=== PATIENT | female | born 1985 | race African-American/Black ===

== ENCOUNTER 2017-05-19 13:59 | Emergency (ER) | payer MEDICAID | END 2017-05-19 14:25 | disposition home or self-care (01) | LOC: D.ER 13:59 | DX: J06.9 Acute upper respiratory infection, unspecified (principal); J02.9 Acute pharyngitis, unspecified; I10 Essential (primary) hypertension; F17.200 Nicotine dependence, unspecified, uncomplicated ==

== ENCOUNTER 2017-08-22 19:25 | Emergency (ER) | payer MEDICAID | END 2017-08-22 20:25 | disposition home or self-care (01) | LOC: D.ER 19:25 | DX: K02.9 Dental caries, unspecified (principal); I10 Essential (primary) hypertension ==

== ENCOUNTER 2017-09-01 16:48 | Emergency (ER) | payer SELFPAY | END 2017-09-01 18:59 | disposition home or self-care (01) | LOC: D.ER 16:48 | DX: K04.7 Periapical abscess without sinus (principal); K08.89 Other specified disorders of teeth and supporting structures; F17.200 Nicotine dependence, unspecified, uncomplicated ==

== ENCOUNTER 2017-11-19 22:31 | Emergency (ER) | payer SELFPAY ==
[~2017-11-19] VITALS: Ht 157.5 cm; Wt 80.9 kg
[2017-11-19 22:37] VITALS: Ht 157.5 cm; Wt 80.9 kg
[2017-11-19 23:01] LABS: APPEARANCE CLEAR (CLEAR); BILIRUBIN NEGATIVE (NEGATIVE); COLOR YELLOW (YELLOW); GLUCOSE NEGATIVE (NEGATIVE); KETONE SMALL mg/dL (NEGATIVE); NITRITE NEGATIVE (NEGATIVE); PROTEIN NEGATIVE (NEGATIVE); UROBILINOGEN NORMAL (NORMAL)
[2017-11-19 23:40] LABS: BASOPHILS 0.1 % (0-2); EOSINOPHILS 0.9 % (0-7); HEMATOCRIT 33.5 % (36.0-48.0); HEMOGLOBIN 12.1 g/dL (12-16); IMMATURE GRANULOCYTES 0.1 % (0-5); LYMPHOCYTES 21.6 % (15-50); MCHC 36.1 g/dL (31.0-37.0); MCV 82.9 fL (80.0-100.0); MEAN PLATELET VOLUME 9.6 fL (7.4-10.4); NEUTROPHILS 71.3 % (40-80); PLATELET COUNT 247 10x3/uL (130-400); RBC 4.04 10x6/uL (4.00-5.40); RDW 13.4 % (11.5-14.5); WBC 11.8 10x3/uL (4.8-10.8)
[2017-11-20 00:04] LABS: ALBUMIN 2.8 g/dL (3.4-5.0); ALKALINE PHOSPHATASE 44 U/L (46-116); ALT (SGPT) 15 U/L (10-68); CALC OSMOLALITY 276 mosm/kg (275-300); CALCIUM 8.4 mg/dL (8.5-10.1); CHLORIDE - SERUM 106 mmol/L (98-107); CREATININE - SERUM 0.7 mg/dL (0.6-1.3); GLUCOSE 88 mg/dL (74-106); POTASSIUM - SERUM 3.5 mmol/L (3.5-5.1); PROTEIN - SERUM 6.6 g/dL (6.4-8.2); SODIUM 139 mmol/L (136-145); UREA NITROGEN 12 mg/dL (7-18); eGFR NON AFRICAN AMERICAN > 90 mL/min (90-120)
[2017-11-20 00:44] VITALS: BP 118/62
== END 2017-11-20 00:45 | disposition home or self-care (01) ==
LOC: D.ER 22:31
PROVIDERS: Family Medicine
DX: O26.892 Other specified pregnancy related conditions, second trimester (principal); Z3A.15 15 weeks gestation of pregnancy

== ENCOUNTER 2018-03-17 10:53 | Emergency (ER) | payer SELFPAY ==
[~2018-03-17] VITALS: Ht 157.5 cm; Wt 93.6 kg
[2018-03-17 10:54] VITALS: BP 120/72; Ht 157.5 cm; Wt 93.6 kg
[2018-03-17 11:41] LABS: BASOPHILS 0.2 % (0-2); EOSINOPHILS 1.2 % (0-7); HEMATOCRIT 30.4 % (36.0-48.0); HEMOGLOBIN 11.2 g/dL (12-16); IMMATURE GRANULOCYTES 0.2 % (0-5); LYMPHOCYTES 21.1 % (15-50); MCH 30.5 pg (26.0-34.0); MCHC 36.8 g/dL (31.0-37.0); MCV 82.8 fL (80.0-100.0); MEAN PLATELET VOLUME 9.5 fL (7.4-10.4); MONOCYTES 6.6 % (2-11); NEUTROPHILS 70.7 % (40-80); PLATELET COUNT 209 10x3/uL (130-400); RBC 3.67 10x6/uL (4.00-5.40); RDW 14.8 % (11.5-14.5)
[2018-03-17 11:57] LABS: ALBUMIN 2.4 g/dL (3.4-5.0); ALKALINE PHOSPHATASE 60 U/L (46-116); ALT (SGPT) 17 U/L (10-68); BILIRUBIN - TOTAL 0.21 mg/dL (0.2-1.3); CALC OSMOLALITY 276 mosm/kg (275-300); CALCIUM 8.6 mg/dL (8.5-10.1); CARBON DIOXIDE 24.3 mmol/L (21.0-32.0); CHLORIDE - SERUM 107 mmol/L (98-107); CREATININE - SERUM 0.7 mg/dL (0.6-1.3); GLUCOSE 95 mg/dL (74-106); POTASSIUM - SERUM 3.5 mmol/L (3.5-5.1); PROTEIN - SERUM 6.5 g/dL (6.4-8.2); SODIUM 140 mmol/L (136-145); UREA NITROGEN 7 mg/dL (7-18); eGFR NON AFRICAN AMERICAN > 90 mL/min (90-120)
== END 2018-03-17 12:00 | disposition home or self-care (01) ==
LOC: D.ER 10:53
PROVIDERS: Emergency Medicine
DX: O26.893 Other specified pregnancy related conditions, third trimester (principal); Z3A.00 Weeks of gestation of pregnancy not specified; Y04.2XXA Assault by strike against or bumped into by another person, initial encounter; Y93.89 Activity, other specified; Y92.019 Unspecified place in single-family (private) house as the place of occurrence of the external cause; R10.11 Right upper quadrant pain

== ENCOUNTER → 2018-03-17 19:01 | Outpatient (CLI) | payer MEDICAID ==
[2018-03-17 10:54] VITALS: BMI 37.7
[2018-03-17 19:53] LABS: BASOPHILS 0.2 % (0-2); EOSINOPHILS 1.1 % (0-7); HEMATOCRIT 30.9 % (36.0-48.0); IMMATURE GRANULOCYTES 0.2 % (0-5); MCH 29.6 pg (26.0-34.0); MCHC 35.6 g/dL (31.0-37.0); MCV 83.1 fL (80.0-100.0); MEAN PLATELET VOLUME 9.4 fL (7.4-10.4); MONOCYTES 5.8 % (2-11); NEUTROPHILS 74.7 % (40-80); PLATELET COUNT 214 10x3/uL (130-400); RBC 3.72 10x6/uL (4.00-5.40); RDW 14.8 % (11.5-14.5); WBC 9.2 10x3/uL (4.8-10.8)
[2018-03-17 20:01] LABS: APTT 27.9 SECONDS (22.8-39.4); INR 1.11 (0.85-1.17); PROTIME 13.9 SECONDS (11.6-15.0)
== END | disposition home or self-care (01) ==
LOC: D.LDO 19:01
PROVIDERS: Obstetrics & Gynecology
DX: O26.893 Other specified pregnancy related conditions, third trimester (principal); Z3A.32 32 weeks gestation of pregnancy; R10.11 Right upper quadrant pain; Y04.2XXA Assault by strike against or bumped into by another person, initial encounter; Y93.9 Activity, unspecified; Y92.9 Unspecified place or not applicable

== ENCOUNTER 2018-03-17 20:40 | Emergency (ER) | payer OTHER ==
[~2018-03-17] VITALS: Ht 157.5 cm; Wt 93.6 kg
[2018-03-17 20:46] VITALS: Ht 157.5 cm; Wt 93.6 kg
[2018-03-17 21:16] LABS: APPEARANCE CLEAR (CLEAR); BILIRUBIN NEGATIVE (NEGATIVE); COLOR DK YELLOW (YELLOW); GLUCOSE NEGATIVE (NEGATIVE); KETONE NEGATIVE (NEGATIVE); NITRITE NEGATIVE (NEGATIVE); PROTEIN NEGATIVE (NEGATIVE); SPECIFIC GRAVITY 1.015 (1.005-1.020); UROBILINOGEN NORMAL (NORMAL)
[2018-03-17 21:19] LABS: BACTERIA MODERATE /hpf (NONE SEEN); RED CELLS - URINE 0-5 /hpf (0-5); WHITE CELLS - URINE 0-5 /hpf (0-5)
[2018-03-17 21:20] LABS: MUCUS >1+ /lpf (NONE SEEN)
[2018-03-17 21:31] LABS: ALBUMIN 2.5 g/dL (3.4-5.0); ALKALINE PHOSPHATASE 63 U/L (46-116); ALT (SGPT) 19 U/L (10-68); BILIRUBIN - TOTAL 0.14 mg/dL (0.2-1.3); CALC OSMOLALITY 276 mosm/kg (275-300); CALCIUM 8.5 mg/dL (8.5-10.1); CARBON DIOXIDE 22.3 mmol/L (21.0-32.0); CHLORIDE - SERUM 105 mmol/L (98-107); CREATININE - SERUM 0.8 mg/dL (0.6-1.3); GLUCOSE 122 mg/dL (74-106); LIPASE 111 U/L (73-393); POTASSIUM - SERUM 3.6 mmol/L (3.5-5.1); PROTEIN - SERUM 6.8 g/dL (6.4-8.2); SODIUM 139 mmol/L (136-145); UREA NITROGEN 8 mg/dL (7-18); eGFR NON AFRICAN AMERICAN 89 mL/min (90-120)
[2018-03-17 23:52] VITALS: BP 120/75
== END 2018-03-17 23:24 | disposition home or self-care (01) ==
LOC: D.ER 20:40
PROVIDERS: Family Medicine
DX: O26.893 Other specified pregnancy related conditions, third trimester (principal); Z3A.00 Weeks of gestation of pregnancy not specified; S20.211A Contusion of right front wall of thorax, initial encounter; Y04.2XXA Assault by strike against or bumped into by another person, initial encounter; Y93.89 Activity, other specified; Y92.019 Unspecified place in single-family (private) house as the place of occurrence of the external cause; R07.89 Other chest pain

== ENCOUNTER → 2018-04-27 12:22 | Outpatient (CLI) | payer OTHER ==
[2018-03-17 20:46] VITALS: BMI 37.7
[~2018-04-27 12:22] MED LIST: PRENAVITE1 TAB PO
[2018-04-27 12:56] LABS: APPEARANCE HAZY (CLEAR); COLOR YELLOW (YELLOW); SPECIFIC GRAVITY 1.015 (1.005-1.020)
[2018-04-27 12:57] LABS: BILIRUBIN NEGATIVE (NEGATIVE); GLUCOSE NEGATIVE (NEGATIVE); KETONE NEGATIVE (NEGATIVE); NITRITE NEGATIVE (NEGATIVE); PROTEIN NEGATIVE (NEGATIVE); UROBILINOGEN NORMAL (NORMAL)
[2018-05-06 21:22] VITALS: BMI 36.9
== END | disposition home or self-care (01) ==
LOC: D.LDO 12:22
PROVIDERS: Obstetrics & Gynecology
DX: O26.893 Other specified pregnancy related conditions, third trimester (principal); Z3A.32 32 weeks gestation of pregnancy

== ENCOUNTER 2018-05-06 19:59 | Inpatient (IN) | payer OTHER ==
[~2018-05-06] VITALS: Ht 160 cm; Wt 94.3 kg
--- NOTE | ~2018-05-06 | DS ---
PATIENT:KATHY ANTONIO :87 MEDICAL RECORD: [id number] DISCHARGE SUMMARY ADMISSION DATE: 05/06/18 DISCHARGE DATE: 05/09/18 ADMISSION DIAGNOSES: 1. at 39 weeks' gestation. 2. Mild preeclampsia. DISCHARGE DIAGNOSES: 1. Mother delivered at 39 weeks. 2. Mild preeclampsia. 3. Shoulder dystocia. ATTENDING: Margret Masterson MD HISTORY OF PRESENT ILLNESS: See the H&P in the chart. SUMMARY OF HOSPITALIZATION: The patient was admitted on the and began induction of labor. The patient delivered vaginally with shoulder dystocia on the day prior to discharge. At discharge, she has a firm uterus at the umbilicus with minimal to moderate lochia. The patient will use [id number] medications for pain. is being transferred to tertiary center for evaluation. Standard precautions have been reviewed with the patient and she is discharged home to be followed up in 6 weeks. TRANSINT:[id number] Voice Confirmation ID: [id number] DOCUMENT ID: [id number] MARGRET MASTERSON MD at 1613 CC: [id number] DICTATION DATE: 05/09/18 1043 COMMUNICATIONS LEAD: 05/10/18 0611 DIS IN 05/09/18 [place] [id number] [place] [address]
--- NOTE | ~2018-05-06 | OP ---
PATIENT NAME: KATHY ANTONIO MEDICAL RECORD: [id number] :86 LOCATION:[facility] [id number] ADMISSION DATE:05/06/18 SURGEON: JOSE MASTERSON MD DATE OF OPERATION: 05/08/2018 DELIVERY NOTE PREDELIVERY DIAGNOSES: 1. at term. 2. Mild preeclampsia. POSTDELIVERY DIAGNOSES: 1. Mother delivered at term. 2. Preeclampsia. 3. Shoulder dystocia. PROCEDURE: Induction of labor with vaginal delivery. ATTENDING: Joes Masterson MD ANESTHESIA: Continuous lumbar/epidural. ANESTHESIOLOGIST: Kosta Day MD FINDINGS: Viable male infant in an URMILA presentation. Apgars 7 and 8 with tight nuchal cord cut on the perineum. Weight is still pending at the time of this dictation. Shoulder dystocia relieved with Mark and suprapubic from the right to the left and rotation of the anterior shoulder clockwise. First-degree laceration with 4-0 chromic repair. Placenta was delivered spontaneous and intact. ESTIMATED BLOOD LOSS: 350 cc. DISPOSITION: Mother and both recovered in the room. TRANSINT:[id number] Voice Confirmation ID: [id number] DOCUMENT ID: [id number] JOSE MASTERSON MD at 1613 CC: [id number] DICTATION DATE: 05/08/18 161 AIR EXPORT AGENT: 05/08/182121 DIS IN 05/09/18 [place] [id number] [place] [id number]
[2018-05-06 21:14] LABS: HEMATOCRIT 33.5 % (36.0-48.0); HEMOGLOBIN 12.1 g/dL (12-16); MCH 30.2 pg (26.0-34.0); MCHC 36.1 g/dL (31.0-37.0); MCV 83.5 fL (80.0-100.0); MEAN PLATELET VOLUME 10.5 fL (7.4-10.4); RBC 4.01 10x6/uL (4.00-5.40); RDW 14.8 % (11.5-14.5); WBC 10.1 10x3/uL (4.8-10.8)
[2018-05-06 21:16] LABS: APPEARANCE CLEAR (CLEAR); BILIRUBIN NEGATIVE (NEGATIVE); COLOR YELLOW (YELLOW); GLUCOSE NEGATIVE (NEGATIVE); KETONE NEGATIVE (NEGATIVE); NITRITE NEGATIVE (NEGATIVE); PROTEIN NEGATIVE (NEGATIVE); SPECIFIC GRAVITY 1.005 (1.005-1.020); UROBILINOGEN NORMAL (NORMAL)
[2018-05-06] MEDS ORDERED: PRENAVITE1 TAB PO (21:21)
[2018-05-06 21:22] VITALS: BP 122/76; Ht 160 cm; Wt 94.3 kg
[2018-05-08 06:12] LABS: RAPID PLASMA REAGIN Non Reactive (Non Reactive)
[2018-05-08 19:05] VITALS: BP 124/65
[2018-05-08 22:45] VITALS: BP 117/62
[2018-05-09 07:23] LABS: BASOPHILS 0.1 % (0-2); EOSINOPHILS 0.2 % (0-7); HEMATOCRIT 33.4 % (36.0-48.0); HEMOGLOBIN 11.9 g/dL (12-16); IMMATURE GRANULOCYTES 0.3 % (0-5); LYMPHOCYTES 13.1 % (15-50); MCH 29.9 pg (26.0-34.0); MCHC 35.6 g/dL (31.0-37.0); MCV 83.9 fL (80.0-100.0); MONOCYTES 6.4 % (2-11); NEUTROPHILS 79.9 % (40-80); PLATELET COUNT 209 10x3/uL (130-400); RBC 3.98 10x6/uL (4.00-5.40); RDW 14.8 % (11.5-14.5); WBC 14.4 10x3/uL (4.8-10.8)
[2018-05-09 08:39] VITALS: BP 120/70
== END 2018-05-09 11:40 | disposition home or self-care (01) | DRG 807 ==
LOC: D.LDO 19:59 → D.LD 20:36
PROVIDERS: Obstetrics & Gynecology
PROC: 3E033VJ Introduction of Other Hormone into Peripheral Vein, Percutaneous Approach (ICD-10-PCS; 2018-05-06)
PROC: 10E0XZZ Delivery of Products of Conception, External Approach (ICD-10-PCS; principal; 2018-05-08)
PROC: 0HQ9XZZ Repair Perineum Skin, External Approach (ICD-10-PCS; 2018-05-08)
DX: O14.04 Mild to moderate pre-eclampsia, complicating childbirth (principal); Z37.0 Single live birth; Z3A.39 39 weeks gestation of pregnancy; O66.0 Obstructed labor due to shoulder dystocia; O70.0 First degree perineal laceration during delivery; O69.81X0 Labor and delivery complicated by cord around neck, without compression, not applicable or unspecified

== ENCOUNTER 2018-09-03 19:30 | Emergency (ER) | payer OTHER ==
[~2018-09-03] VITALS: Ht 160 cm; Wt 90.7 kg
[2018-09-03 19:34] VITALS: Ht 160 cm; Wt 90.7 kg
[2018-09-03 19:51] LABS: APPEARANCE CLEAR (CLEAR); BILIRUBIN NEGATIVE (NEGATIVE); COLOR YELLOW (YELLOW); GLUCOSE NEGATIVE (NEGATIVE); KETONE NEGATIVE (NEGATIVE); NITRITE NEGATIVE (NEGATIVE); PROTEIN NEGATIVE (NEGATIVE); UROBILINOGEN NORMAL (NORMAL)
[2018-09-03 19:52] LABS: HCG URINE POSITIVE (NEGATIVE)
[2018-09-03 20:25] LABS: BASOPHILS 0.1 % (0-2); EOSINOPHILS 0.3 % (0-7); HEMATOCRIT 34.9 % (36.0-48.0); HEMOGLOBIN 12.5 g/dL (12-16); IMMATURE GRANULOCYTES 0.2 % (0-5); LYMPHOCYTES 14.7 % (15-50); MCH 29.3 pg (26.0-34.0); MCHC 35.8 g/dL (31.0-37.0); MCV 81.7 fL (80.0-100.0); MEAN PLATELET VOLUME 9.5 fL (7.4-10.4); MONOCYTES 5.4 % (2-11); NEUTROPHILS 79.3 % (40-80); PLATELET COUNT 251 10x3/uL (130-400); RBC 4.27 10x6/uL (4.00-5.40); RDW 14.1 % (11.5-14.5); WBC 9.3 10x3/uL (4.8-10.8)
[2018-09-03 20:38] LABS: ALKALINE PHOSPHATASE 50 U/L (46-116); ALT (SGPT) 19 U/L (10-68); BILIRUBIN - TOTAL 0.11 mg/dL (0.2-1.3); CALC OSMOLALITY 269 mosm/kg (275-300); CALCIUM 8.1 mg/dL (8.5-10.1); CARBON DIOXIDE 23.2 mmol/L (21.0-32.0); CHLORIDE - SERUM 102 mmol/L (98-107); CREATININE - SERUM 0.7 mg/dL (0.6-1.3); GLUCOSE 90 mg/dL (74-106); POTASSIUM - SERUM 3.9 mmol/L (3.5-5.1); SODIUM 136 mmol/L (136-145); UREA NITROGEN 8 mg/dL (7-18); eGFR NON AFRICAN AMERICAN > 90 mL/min (90-120)
[2018-09-03 21:01] LABS: AMYLASE - SERUM 41 U/L (25-115); HCG - QUANTITATIVE (MATERNAL) 74016 mIU/mL; LIPASE 112 U/L (73-393); TROPONIN-I < 0.017 ng/mL (0.000-0.060)
[2018-09-03] MEDS ORDERED: MECLIZINE HCL25 MG PO (21:43)
[2018-09-03 22:20] VITALS: BP 104/74
== END 2018-09-03 22:08 | disposition home or self-care (01) ==
LOC: D.ER 19:30
PROVIDERS: Family Medicine
DX: O26.891 Other specified pregnancy related conditions, first trimester (principal); Z3A.11 11 weeks gestation of pregnancy; A08.4 Viral intestinal infection, unspecified

== ENCOUNTER 2019-01-24 10:39 | Emergency (ER) | payer OTHER ==
[~2019-01-24] VITALS: Ht 160 cm; Wt 95.9 kg
[~2019-01-24 10:39] MED LIST changes: +MECLIZINE HCL25 MG PO
[2019-01-24 10:53] VITALS: Ht 160 cm; Wt 95.9 kg
[2019-01-24] MEDS ORDERED: TYLENOL W/CODEI1 TAB PO (11:09)
[2019-01-24 11:30] VITALS: BP 118/73
== END 2019-01-24 11:50 | disposition home or self-care (01) ==
LOC: D.ER 10:39
DX: O26.893 Other specified pregnancy related conditions, third trimester (principal); Z3A.00 Weeks of gestation of pregnancy not specified; R07.9 Chest pain, unspecified

== ENCOUNTER 2019-02-04 13:11 | Emergency (ER) | payer MEDICAID ==
[2019-01-24 10:53] VITALS: Ht 160 cm; Wt 96.8 kg
[~2019-02-04] VITALS: Ht 160 cm; Wt 96.8 kg
[~2019-02-04 13:11] MED LIST changes: +TYLENOL W/CODEI1 TAB PO
--- NOTE | 2019-02-04 16:00 | NUR ---
DR. ACEVEDO AND ALEXEI ORDERED. SITTER AT BEDSIDE. NOTIFIED CHARGE NURSE AND ATTENDING IN REGARDS TO ASSESSMENT FINDINGS. RESOURCES GIVEN TO PT AND SAFETY PLAN INITIATED.
[2019-02-04 17:21] LABS: BASOPHILS 0.1 % (0-2); EOSINOPHILS 0.4 % (0-7); HEMATOCRIT 30.1 % (36.0-48.0); IMMATURE GRANULOCYTES 0.2 % (0-5); LYMPHOCYTES 14.6 % (15-50); MCH 29.8 pg (26.0-34.0); MCHC 36.5 g/dL (31.0-37.0); MCV 81.6 fL (80.0-100.0); MEAN PLATELET VOLUME 9.6 fL (7.4-10.4); MONOCYTES 4.1 % (2-11); NEUTROPHILS 80.6 % (40-80); PLATELET COUNT 210 10x3/uL (130-400); RBC 3.69 10x6/uL (4.00-5.40); RDW 14.1 % (11.5-14.5); WBC 12.2 10x3/uL (4.8-10.8)
[2019-02-04 17:35] LABS: ALBUMIN 2.3 g/dL (3.4-5.0); ALKALINE PHOSPHATASE 67 U/L (46-116); ALT (SGPT) 13 U/L (10-68); BILIRUBIN - TOTAL 0.24 mg/dL (0.2-1.3); CALC OSMOLALITY 275 mosm/kg (275-300); CALCIUM 8.6 mg/dL (8.5-10.1); CARBON DIOXIDE 23.8 mmol/L (21.0-32.0); CHLORIDE - SERUM 106 mmol/L (98-107); CREATININE - SERUM 0.8 mg/dL (0.6-1.3); GLUCOSE 103 mg/dL (74-106); MAGNESIUM - SERUM 1.5 mg/dL (1.8-2.4); POTASSIUM - SERUM 3.6 mmol/L (3.5-5.1); PROTEIN - SERUM 6.5 g/dL (6.4-8.2); SODIUM 139 mmol/L (136-145); UREA NITROGEN 7 mg/dL (7-18); eGFR NON AFRICAN AMERICAN 88 mL/min (90-120)
[2019-02-04 18:08] LABS: UDS - AMPHET NEGATIVE QUAL (NEGATIVE); UDS - BARB NEGATIVE QUAL (NEGATIVE); UDS - BENZO NEGATIVE QUAL (NEGATIVE); UDS - COCAINE NEGATIVE QUAL (NEGATIVE); UDS - OPIATE NEGATIVE QUAL (NEGATIVE); UDS - PCP NEGATIVE QUAL (NEGATIVE); UDS - THC NEGATIVE QUAL (NEGATIVE)
[2019-02-04 18:11] LABS: APPEARANCE CLEAR (CLEAR); COLOR YELLOW (YELLOW)
[2019-02-04 18:12] LABS: BILIRUBIN NEGATIVE (NEGATIVE); GLUCOSE NEGATIVE (NEGATIVE); KETONE NEGATIVE (NEGATIVE); NITRITE NEGATIVE (NEGATIVE); PROTEIN NEGATIVE (NEGATIVE); RED CELLS - URINE OCC /hpf (0-5); SPECIFIC GRAVITY 1.015 (1.005-1.020); UROBILINOGEN NORMAL (NORMAL); WHITE CELLS - URINE 0-5 /hpf (0-5)
[2019-02-04 18:13] LABS: BACTERIA FEW /hpf (NONE SEEN); MUCUS <1+ /lpf (NONE SEEN)
[2019-02-05 01:59] VITALS: BP 104/59
== END 2019-02-05 03:15 ==
LOC: D.ER 13:11
PROVIDERS: Emergency Medicine
DX: O26.893 Other specified pregnancy related conditions, third trimester (principal); Z3A.34 34 weeks gestation of pregnancy; F32.9 Major depressive disorder, single episode, unspecified; S61.212A Laceration without foreign body of right middle finger without damage to nail, initial encounter; W25.XXXA Contact with sharp glass, initial encounter; Y93.89 Activity, other specified; Y92.89 Other specified places as the place of occurrence of the external cause; S16.1XXA Strain of muscle, fascia and tendon at neck level, initial encounter; Y04.2XXA Assault by strike against or bumped into by another person, initial encounter; R45.851 Suicidal ideations

== ENCOUNTER 2019-02-16 23:11 | Outpatient (CLI) | payer MEDICAID ==
[2019-02-04 13:16] VITALS: BMI 37.8
[2019-02-16 23:55] LABS: UDS - AMPHET NEGATIVE QUAL (NEGATIVE); UDS - BARB NEGATIVE QUAL (NEGATIVE); UDS - BENZO NEGATIVE QUAL (NEGATIVE); UDS - COCAINE NEGATIVE QUAL (NEGATIVE); UDS - OPIATE NEGATIVE QUAL (NEGATIVE); UDS - PCP NEGATIVE QUAL (NEGATIVE); UDS - THC NEGATIVE QUAL (NEGATIVE)
--- NOTE | 2019-02-16 23:58 | NUR ---
THIS NURSE WAS CALLED TO LABOR AND DELIVERY TO DO A SUICIDE ASSESSMENT. WHEN THIS NURSE ASKED THIS PATIENT IF SHE WANTED TO HURT HERSELF, THE PATIENT STARTED YELLING AND CUSSING SAYING THAT SHE IS NOT SUICIDAL AND HAS NEVER BEEN SUICIDAL. THIS NURSE ASKED LABOR AND DELIVERY NURSE AND SHE SAID THAT SHE ANSWERED YES TO GATHERING ITEMS TO END HER LIFE WITHIN THE LAST THREE MONTHS AND THE PATIENT WAS YELLING AND CURSING SAYING SHE DID NOT SAY THAT AND THAT WE DID NOT KNOW WHAT WE WERE DOING AND SHE REFUSED TO ANSWER ANY OF THE SUICIDE ASSESSMENT QUESTIONS AND SHE LEFT AMA
[2019-02-17 00:03] LABS: APPEARANCE HAZY (CLEAR); BACTERIA FEW /hpf (NONE SEEN); BILIRUBIN NEGATIVE (NEGATIVE); COLOR YELLOW (YELLOW); EPITHELIAL CELLS 0-5 /hpf (0-5); GLUCOSE NEGATIVE (NEGATIVE); KETONE SMALL mg/dL (NEGATIVE); MUCUS >1+ /lpf (NONE SEEN); NITRITE NEGATIVE (NEGATIVE); PROTEIN NEGATIVE (NEGATIVE); RED CELLS - URINE OCC /hpf (0-5); UROBILINOGEN NORMAL (NORMAL); WHITE CELLS - URINE 0-5 /hpf (0-5)
== END 2019-02-16 23:47 | disposition left against medical advice (07) ==
LOC: D.LD 23:11 → D.LDO 23:11
PROVIDERS: ATTEND Obstetrics & Gynecology
DX: O26.893 Other specified pregnancy related conditions, third trimester (principal); Z3A.34 34 weeks gestation of pregnancy

== ENCOUNTER 2019-03-20 05:02 | Inpatient (IN) | payer MEDICAID ==
[~2019-03-20] VITALS: Ht 160 cm; Wt 99.8 kg
--- NOTE | ~2019-03-20 | DS ---
PATIENT:KATHY EL :87 MEDICAL RECORD: [id number] DISCHARGE SUMMARY ADMISSION DATE: 03/20/19 DISCHARGE DATE: 03/22/19 The patient was admitted on 03/20/2019. HISTORY: A 33-year-old at 39 weeks, admitted for induction of labor secondary to patient wishes. The patient was noted to be B positive, group B strep negative, and rubella immune. MEDICAL HISTORY: Significant for history of hepatitis. SURGICAL HISTORY: The patient reported no significant past surgical history. ALLERGIES: The patient reports no allergies. MEDICATIONS: Included vitamins and Protonix. FAMILY HISTORY: Significant for a parent with cardiovascular disease, not otherwise specified and a child with a neurologic disorder, not otherwise specified. SOCIAL HISTORY: Significant for tobacco use on a daily basis. PHYSICAL EXAMINATION: VITAL SIGNS: On initial assessment, vital signs are stable. The patient was afebrile and normotensive. LUNGS: Clear to auscultation. CARDIOVASCULAR: Regular rate and rhythm. PELVIC: Uterus was appropriately sized and nontender. EXTREMITIES: Lower extremities were free of Homans sign, erythema, or swelling. wellbeing was reassuring at admission with a category 1 tracing in the 120s to 130s with moderate variability. Admit hemoglobin was found to be 11.4, platelet count 236. ASSESSMENT AND PLAN: At admission: 1. Term intrauterine at 39 weeks. 2. Induction of labor per patient wishes. 3. Past history of hepatitis C. 4. Smoker. Plan at that time for Pitocin induction of labor, AROM when appropriate, category 1 tracing noted. Risks and benefits were explained to the patient. The patient voiced understanding and consent during the labor, the patient did not progress to full dilation. The patient was taken for a section where occiput posterior presentation was identified. Operative report is as dictated. Operative note is on the chart. The patient did well overnight on postop day #0, with a Dilaudid GAME ADVISOR, IV Toradol, IV fluids, tolerating clear liquid diet. A Kelly catheter was in place and urine output was adequate overnight. SCDs were on and functioning normally. On the morning of postop day #1, the patient was doing well. Vital signs are stable. The patient was afebrile and normotensive. Incision was clean, dry, and intact. Uterus was infraumbilical and appropriately tender. Lower DISCHARGE SUMMARY REPORT [id number] KATHY EL extremities were free of erythema, swelling, or Homans sign. The patient was advanced to general diet and p.o. pain meds. Kelly catheter was discontinued and ambulation begun. Postop hemoglobin was found to be stable. The patient continued to improve overnight on postop day #1. On the morning of postop day #2, the patient continued to do well. Vital signs remained stable. The patient was afebrile and normotensive. Incision was clean, dry and intact. Uterus was infraumbilical and appropriately tender. Lower extremities free of Homans sign. The patient is tolerating general diet and p.o. pain meds well, ambulating and voiding freely. The patient was discharged home on postop day #2 with instructions to follow up the next week for wound check. TRANSINT:[id number] Voice Confirmation ID: [id number] DOCUMENT ID: [id number] MISSAEL BURROWS MD CC: [id number] DICTATION DATE: 05/18/191958 MANAGER ENGLISH: 05/19/19 0916 DIS IN 03/22/19 [place] [id number] [place] [address]
[2019-03-20] MEDS ORDERED: PROTONIX40 MG (05:30)
[2019-03-20 05:31] VITALS: BP 133/77; Ht 160 cm; Wt 99.8 kg
[2019-03-20 06:41] LABS: UDS - AMPHET NEGATIVE QUAL (NEGATIVE); UDS - BARB NEGATIVE QUAL (NEGATIVE); UDS - BENZO NEGATIVE QUAL (NEGATIVE); UDS - COCAINE NEGATIVE QUAL (NEGATIVE); UDS - OPIATE NEGATIVE QUAL (NEGATIVE); UDS - PCP NEGATIVE QUAL (NEGATIVE); UDS - THC NEGATIVE QUAL (NEGATIVE)
[2019-03-20 06:43] LABS: APPEARANCE CLEAR (CLEAR); BILIRUBIN NEGATIVE (NEGATIVE); COLOR YELLOW (YELLOW); GLUCOSE NEGATIVE (NEGATIVE); KETONE NEGATIVE (NEGATIVE); NITRITE NEGATIVE (NEGATIVE); PROTEIN NEGATIVE (NEGATIVE); UROBILINOGEN NORMAL (NORMAL)
[2019-03-20 07:09] LABS: HEMATOCRIT 32.8 % (36.0-48.0); HEMOGLOBIN 11.4 g/dL (12-16); MCH 29.2 pg (26.0-34.0); MCHC 34.8 g/dL (31.0-37.0); MCV 84.1 fL (80.0-100.0); MEAN PLATELET VOLUME 9.8 fL (7.4-10.4); RBC 3.9 10x6/uL (4.00-5.40); RDW 14.4 % (11.5-14.5); WBC 8.1 10x3/uL (4.8-10.8)
--- NOTE | 2019-03-20 18:11 | NUR ---
CONVERTED FROM EPIDURAL ANESTHESIA TO GENERAL AT 1750. BABY DELIVERED AT 1752
--- NOTE | 2019-03-20 19:25 | NUR ---
1905 RECEIVED PATIENT SUPINE, AROUSABLE WITH VERBAL STIMULATION. FUNDUS PALPATED AT UMBILICUS LEVEL, FIRM AND HARD.
--- NOTE | 2019-03-20 19:42 | NUR ---
MEETS ANESTHESIA DISCHARGE CRITERIA.
--- NOTE | 2019-03-20 19:50 | NUR ---
PT REC'D TO LABOR AND DELIVERY VIA STRETCHER FROM RECOVERY. PT CURSING AND DEMANDING WATER AT THIS TIME. PT INFORMED THAT WE WOULD GET HER SETTLED AND WE WOULD GET HER SOMETHING TO DRINK. IV TO THE LEFT HAND. NS +20 PITOCIN AT 125 ML/HR. SITE CLEAR AND PATENT. LUNGS CLEAR. BS HYPOACTIVE TO ALL QUADRANTS. TSE WITH 200 ML OF CHEN URINE NOTED AT THIS TIME. FUNDUS FIRM AND MIDLINE WITH MODERATE LOCHIA NOTED. SCDS IN PLACE AND FUNCTIONAL. NO ACUTE DISTRESS NOTED AT THIS TIME. SIDERAILS UP FOR SAFETY. CALL LIGHT IN PT REACH. Omaira SALAS RN
[2019-03-20 19:52] VITALS: BP 133/82
--- NOTE | 2019-03-20 20:05 | NUR ---
TORADOL 30 MG GIVEN FOR PAIN LEVEL OF 10. L KRISTA SALAS
--- NOTE | 2019-03-20 20:15 | NUR ---
CAR SHIFTER OF DILAUDID STARTED AT THIS TIME. BOLUS DOSE OF 0.4 MF GIVEN AT PT CONTINUES TO COMPLAIN OF PAIN. Omaira SALAS RN
--- NOTE | 2019-03-20 21:30 | NUR ---
PT STATES THAT PAIN LEVEL AT THIS TIME IS A 6/10. WILL CONTINUE TO MOITOR. VISITORS IN ROOM AT THIS TIME. Omaira SALAS RN
--- NOTE | 2019-03-20 21:45 | NUR ---
PT STATES NO NAUSEA. CLEAR LIQUIDS GIVEN AT THIS TIME. PT GIVEN BROTH AND SPRITE. WATER ALSO GIVEN. WILL CONTINUE TO MONITOR. 100 ML IN TSE CATH. Omaira SALAS RN
--- NOTE | 2019-03-20 23:05 | NUR ---
AMENA CARE PROVIDED AT THIS TIME. SMALL AMOUNT OF LOCHIA NOTED AT THIS TIME. PT REPOSITIONED IN BED AT THIS TIME. DEEP BREATHING DONE WITH PATIENT. Omaira SALAS RN
[2019-03-21 00:02] VITALS: BP 132/76
--- NOTE | 2019-03-21 00:02 | NUR ---
VITAL SIGNS STABLE. PT TURNED AND REPOSITIONED AT THIS TIME. STATES PAIN IS A 3-4. NO NEEDS VERBALIZED. 250 ML EMPTIED FROM TSE CATH. Omaira SALAS RN
--- NOTE | 2019-03-21 02:00 | NUR ---
PT RESTING. ASSISTED WITH DEEP BREATHING AND COUGHING. NO DISTRESS NOTED. Omaira SALAS RN
[2019-03-21 03:53] VITALS: BP 133/72
--- NOTE | 2019-03-21 03:53 | NUR ---
PT REC'D IN BED. STATES PAIN IS AN 8/10 . PT ENCOURAGED TO USE HER PAIN PUMP BUTTON. PT REMAINS IN STABLE CONDITION. PERICARE PROVIDED. TSE CATH EMPTIED AND 200 ML NOTED. Omaira SALAS RN
--- NOTE | 2019-03-21 06:45 | NUR ---
PT STATES THAT SHE HAS NO PAIN NOTED AT THIS TIME. TSE CATH PATENT WITH 100 ML OF URINE NOTED. S/O AT BEDSIDE AT THIS TIME. Omaira SALAS RN
[2019-03-21 07:05] LABS: BASOPHILS 0.1 % (0-2); EOSINOPHILS 0.2 % (0-7); HEMOGLOBIN 9.7 g/dL (12-16); IMMATURE GRANULOCYTES 0.3 % (0-5); MCH 29.1 pg (26.0-34.0); MCHC 34.6 g/dL (31.0-37.0); MCV 84.1 fL (80.0-100.0); MEAN PLATELET VOLUME 9.9 fL (7.4-10.4); MONOCYTES 7.5 % (2-11); NEUTROPHILS 82.9 % (40-80); PLATELET COUNT 198 10x3/uL (130-400); RBC 3.33 10x6/uL (4.00-5.40); RDW 14.3 % (11.5-14.5)
[2019-03-21 07:08] LABS: WBC 13.9 10x3/uL (4.8-10.8)
[2019-03-21 07:13] LABS: RAPID PLASMA REAGIN Non Reactive (Non Reactive)
--- NOTE | 2019-03-21 10:00 | NUR ---
to pt's room, hampton cath removed with 1200 ml's clear yellow urine out. pericare done with warm wet washcloths, peripanties/pads applied. peritowels/chux changed. clean gown on. large mug of ice water served to pt. pt denies all other needs at this time. incentive spriometer explained and demonstrated, well x3. coughing and deep breathing exercises done, x 3. pt denies passing gas, denies n/v. position changed to left tilt, pillows placed for support and comfort. srup x2, call light and phone within reach.
[2019-03-21 10:15] VITALS: BP 114/63
--- NOTE | 2019-03-21 11:30 | NUR ---
pt requests to get up to the bathroom to pee. pt assisted up to br, gait slow and steady. pt voids 300 ml's clear yellow urine. pericare done with warm wet washcloths, peripads/panties on. scant rubra lochia noted, no clots seen. pt then back to bed. srup x2, call light and phone within reach. pt's mother at bedside attending to pt's young son.
[2019-03-21 12:06] LABS: BASOPHILS 0.1 % (0-2); EOSINOPHILS 0.1 % (0-7); HEMATOCRIT 29.5 % (36.0-48.0); HEMOGLOBIN 10.4 g/dL (12-16); IMMATURE GRANULOCYTES 0.4 % (0-5); LYMPHOCYTES 9.1 % (15-50); MCH 29.4 pg (26.0-34.0); MCHC 35.3 g/dL (31.0-37.0); MCV 83.3 fL (80.0-100.0); MEAN PLATELET VOLUME 9.7 fL (7.4-10.4); MONOCYTES 6.4 % (2-11); NEUTROPHILS 83.9 % (40-80); PLATELET COUNT 220 10x3/uL (130-400); RBC 3.54 10x6/uL (4.00-5.40); RDW 14.2 % (11.5-14.5); WBC 13.8 10x3/uL (4.8-10.8)
--- NOTE | 2019-03-21 13:50 | NUR ---
to pt's room, pt is resting with eyes closed, resp even and ul at 16/min. pt awakened, see emar for all meds adm by this rn. srup x2, call light and phone within reach. pt denies all other needs.
[2019-03-21 13:55] VITALS: BP 139/61
--- NOTE | 2019-03-21 14:45 | NUR ---
pt up to br, voids per self without difficulty. 300 ml's noted in [place] hat per jigar bryan rn. pt also ambulatory in hallway to nurses desk. pt denies all needs at this time.
--- NOTE | 2019-03-21 16:30 | NUR ---
to pt's room, pt requests to get up to the bathroom, and to take a shower. pt provided with toothbrush/paste, baby wash, towels/washcloths, deoderant, and peripanties/pads. pt to shower. bed linens changed. clean gown provided. fob in room with infant, in crib and young son. large mug of ice water served to pt. srup x2, call light and phone within reach.
--- NOTE | 2019-03-21 17:00 | NUR ---
pt up to br, voids per self, 200 ml's in [place] hat, pericare done per self. pt denies all other needs at this time. dietary serves supper tray. sr up x2, cl/phone within reach. fob in room with young son.
--- NOTE | 2019-03-21 18:55 | NUR ---
report given to 7 p shift.
--- NOTE | 2019-03-21 19:18 | NUR ---
pt sitting up on the side of bed, talking on telephone to her mother. sig other in room, tending to . pt denies other needs.
--- NOTE | 2019-03-21 20:08 | NUR ---
PT UP TO RESTROOM. VOIDED AT THIS TIME. ASSESSMENT COMPLETED. SEE FLOWSHEET. VSS. CL IN REACH. SR UP X2. DENIES ANY NEEDS AT THIS TIME
[2019-03-21 20:13] VITALS: BP 125/60
--- NOTE | 2019-03-21 21:00 | NUR ---
PT UP IN ROOM WITH RESTROOM AT THIS TIME. DENIES ANY NEEDS
--- NOTE | 2019-03-21 21:55 | NUR ---
REQUESTING SLEEP MEDICATION. MEDICATION ORDERED RECEIVED. AMBIEN GIVEN PER ORDER. CL IN REACH. SR UP X2. DENIES ANY OTHER NEEDS
--- NOTE | 2019-03-21 22:30 | NUR ---
SITTING UP IN BED. FAMILY AT BED. CL IN REACH. SR UP X2. DENIES ANY NEEDS AT THIS TIME. WILL MONITOR
--- NOTE | 2019-03-21 23:25 | NUR ---
PAIN MED GIVEN PER ORDER. SEE EMAR. CL IN REACH. SR UP X2. FAMILY AT BEDSIDE. DENIES ANY OTHER NEEDS
--- NOTE | 2019-03-22 00:11 | NUR ---
PT SLEEPING IN BED WITH EYES CLOSED. NO DISTRESS NOTED. CL IN REACH. SR UP X2. WILL MONTITOR
[2019-03-22 00:25] VITALS: BP 125/60
--- NOTE | 2019-03-22 00:47 | NUR ---
REPORT GIVEN TO GARY VELASCO
--- NOTE | 2019-03-22 02:15 | NUR ---
CALLED TO ROOM BY PATIENT, REQUESTING THERMOSTAT BE ADJUSTED. DENIES PAIN AT THIS TIME. IN MOTHERS ARMS, PLACED BACK IN CRIB AND SWADDLED IN TWO BLANKETS.
--- NOTE | 2019-03-22 03:08 | NUR ---
PATIENT WALKING IN ROOM, STATES THAT SHE JUST WENT TO THE BATHROOM, SHE IS PASSING GAS AND FEELS SO MUCH BETTER. SHE STATES THAT BEFORE WHEN SHE WOULD TRY AND WALK SHE WAS BENT OVER AND NOW SHE IS STANDING UP STRAIGHT. ENCOURAGED PT TO CONTINUE WALKING IN ROOM. NO NEEDS IDENTIFIED, WILL CONTINUE TO MONITOR
--- NOTE | 2019-03-22 05:00 | NUR ---
PATIENT SITTING UP IN BED , DENIES NEEDS AT THIS TIME. WILL CONTINUE TO MONITOR
--- NOTE | 2019-03-22 07:30 | NUR ---
PT CALLS OUT POWER STATION OPERATOR LIGHT, TO PT'S ROOM, PT IS SITTING UP IN THE BED, INFANT. PT REQUESTS BOTTLE FOR BABY. NSY NOTIFIED OF PT'S REQUEST FOR BOTTLE. PT HAS BREAKFAST TRAY ON BEDSIDE TABLE. PT DENIES OTHER NEEDS AT THIS TIME. SRUP X2, CALL LIGHT AND PHONE WITHIN REACH.
--- NOTE | 2019-03-22 07:50 | NUR ---
pt has clear liquid breakfast. dr. brush in room speaking with pt. removes dressing from incision.
--- NOTE | 2019-03-22 07:52 | NUR ---
dr. brush inquiring about urine output, report of 150 ml's to md by christian hilario rn. will change pain meds to oral, and d/c hampton, advance to regular diet.
--- NOTE | 2019-03-22 08:45 | NUR ---
AM ASSESSMENT COMPLETED, SEE FLOWSHEET. SR UP X2, CALL LIGHT AND PHONE WITHIN REACH.
[2019-03-22 08:50] VITALS: BP 126/79
--- NOTE | 2019-03-22 08:54 | NUR ---
IV DC'D WITH CATH INTACT. PT VALE WELL. INFANT IN CRIB, IN ROOM, ASLEEP, NO DISTRESS NOTED.
--- NOTE | 2019-03-22 11:45 | NUR ---
DIETARY SERVES LUNCH TRAY, PT DENIES NEEDS AT THIS TIME. SR UP X2, CALL LIGHT AND PHONE WITHIN REACH.
--- NOTE | 2019-03-22 13:00 | NUR ---
TO PT'S ROOM, PT IS DRESSED AND READY FOR DISCHARGE. SIG OTHER IN ROOM AWAITING PT'S AND 'S DISCHARGE. PT PROVIDED WITH PERIPADS/PANTIES. LARGE MUG OF ICE WATER PROVIDED TO PT PER HER REQUEST. DENIES ALL OTHER NEEDS.
[2019-03-22] MEDS ORDERED: HYDROCODON-ACE1 EA10 PO (13:21)
[2019-03-22] MEDS ORDERED: MOTRIN600 MG PO (13:22)
--- NOTE | 2019-03-22 15:30 | NUR ---
DISCHARGE INSTRUCTIONS EXPLAINED TO PT, PT DENIES QUESTIONS, PT PROVIDED WITH COPIES OF DISCHARGE INSTRUCTIONS, PP INSTRUCTION SHEET, APPT CARD, EMERGENCY INFO SHEET, AND PRESCRIPTIONS GIVEN TO PT. PT DENIES ALL QUESTIONS. AWAITING DISCHARGE OF . LARGE MUG OF ICE WATER GIVEN TO PT PER HER REQUEST.
--- NOTE | 2019-03-23 08:47 | MORECARE ---
CASE MANAGEMENT DISCHARGE SUMMARY PATIENT: KATHY EL UNIT: [id number] ADM DATE: 03/20/19 AGE: 33 : 86 SEX: F ROOM/BED: D.1274 AUTHOR: HOLLIS RAGLAND PHYSICIAN: REFERRING PHYSICIAN: MISSAEL BURROWS MD DATE OF SERVICE: 03/23/19 Discharge Plan Patient Name: [facility] EL [facility] [facility] 1985 Planned Disposition: Anticipated Discharge Date: Discharge Date: 03/22/2019 Expected LOS: Initial Reviewer: [email or web address] Initial Review Date: 03/20/2019 Generated: 03/23/19 9:47 am Patient Name: KATHY EL Page [phone] at 0847 All edits/amendments must be made on the electronic document DICTATION DATE: 03/23/19846 PATTERN ROOM ATTENDANT: ÁNGELA 03/23/19846 RPT#: [id number] DC DATE:03/22/19 STATUS: DIS IN [facility] [address] [place] [id number] END OF REPORT
--- NOTE | 2019-04-08 14:22 | OP ---
PATIENT NAME: KATHY EL MEDICAL RECORD: [id number] :86 LOCATION:[facility] D.1274 ADMISSION DATE:03/20/19 SURGEON: SATYA SAGE MD DATE OF OPERATION: 03/20/2019 PREOPERATIVE DIAGNOSES: 1. Failed induction of labor at 39 weeks. 2. Arrest of dilatation in the second stage of labor. 3. occiput posterior presentation. POSTOPERATIVE DIAGNOSES: 1. Failed induction of labor at 39 weeks. 2. Arrest of dilatation in the second stage of labor. 3. occiput posterior presentation. PROCEDURE: A primary low transverse section and bilateral tubal ligation via modified Uchida procedure. SURGEON: Satya Sage MD ESTIMATED BLOOD LOSS: 1000 cc. ANESTHESIA: Regional via epidural. INTRAVENOUS FLUIDS: Per anesthesia record. SPECIMENS: Placenta and cord for gases, and bilateral fallopian tube segments. FINDINGS: 1. Viable infant. 2. Occiput posterior presentation. 3. Placenta delivered manually intact, 3-vessel cord. 4. Grossly normal-appearing adnexa bilaterally. COMPLICATIONS: None apparent. PROCEDURE IN DETAIL: The patient was taken to the operating room where regional anesthesia was achieved without difficulty using the epidural catheter in place during the labor. A Kelly catheter was in place and draining freely. Lower extremities had SCDs on, which were functioning normally. Following prep and drape, a Pfannenstiel skin incision was made, extended down to the underlying subcutaneous fat to level of the fascia. The fascia was then excised in the midline using the scalpel and extended bilaterally using the Sheehan scissors. Superior and inferior aspect of the fascial incision were then grasped with Iman clamps times 3, tented upward, and sharply dissected from the underlying rectus muscle using the Bovie cautery and the Sheehan scissors. The rectus muscles were bluntly in the midline and the peritoneum entered sharply at the superior aspect of the incision. Peritoneal incision was extended bilaterally using the Metzenbaum scissors. A bladder blade was then placed into the pelvis and a bladder flap was created by excising the anterior leaf of the broad ligament across the lower uterine segment. This was further developed using the scissors and also digitally. The bladder blade was then replaced over the bladder flap and a low transverse incision was made and extended superiorly and inferiorly using the Pelosi method. The vertex was then delivered atraumatically followed by the body. The infant was bulb suctioned upon OPERATIVE REPORT [id number] KATHY EL delivery of the head. The cord was clamped times 2, cut, and infant was handed to awaiting nursery team. Cord was obtained for gases. The placenta was then removed manually intact. A 3-vessel cord was noted. The uterus was then exteriorized, cleared of all clots and debris and vigorously massaged with good uterine tone was noted. The uterine incision was repaired with 0 Vicryl in a running locked fashion times 2. Attention was then turned to the fallopian tubes, where a defect was made in the bilateral mesosalpinx at approximately the midpoint of the fallopian tube. Curved Genoveva clamps were then placed across the fallopian tubes distally and medially and a piece of tubal segment was then removed using the Metzenbaum scissors. The tubal stumps were then free tied and then suture ligated distally with good hemostasis noted. The tubal segments were removed using the Metzenbaum scissors. The posterior cul-de-sac was then thoroughly irrigated the uterus was replaced into the pelvis. Anterior cul-de-sac thoroughly irrigated and all surgical sites found to be hemostatic. Counts were correct times 2 for sponges, needles, and instruments and the fascia was repaired with 0 loop PDS times 1 and the skin repaired with priscilla. The patient tolerated procedure well, transported to postanesthesia recovery stable without incident. TRANSINT:[id number] Voice Confirmation ID: [id number] DOCUMENT ID: [id number] SATYA SAGE MD at 1422 CC: [id number] DICTATION DATE: 04/05/19 1221 DISCHARGE COORDINATOR: 04/05/19 1302 DIS IN 03/22/19 [facility] [address] [place] [address]
== END 2019-03-22 15:30 | disposition home or self-care (01) | DRG 785 ==
LOC: D.LD 05:02
PROVIDERS: ADMIT Obstetrics & Gynecology; ATTEND Obstetrics & Gynecology
PROC: 3E033VJ Introduction of Other Hormone into Peripheral Vein, Percutaneous Approach (ICD-10-PCS; 2019-03-20)
PROC: 10907ZC Drainage of Amniotic Fluid, Therapeutic from Products of Conception, Via Natural or Artificial Opening (ICD-10-PCS; 2019-03-20)
PROC: 10D00Z1 Extraction of Products of Conception, Low, Open Approach (ICD-10-PCS; principal; 2019-03-20 17:00)
PROC: 0UB70ZZ Excision of Bilateral Fallopian Tubes, Open Approach (ICD-10-PCS; 2019-03-20 17:00)
DX: O99.334 Smoking (tobacco) complicating childbirth (principal); F17.200 Nicotine dependence, unspecified, uncomplicated; Z3A.39 39 weeks gestation of pregnancy; Z37.0 Single live birth; O62.1 Secondary uterine inertia; Z30.2 Encounter for sterilization; Z30.09 Encounter for other general counseling and advice on contraception

== ENCOUNTER 2019-06-12 15:09 | Emergency (ER) | payer MEDICAID ==
[~2019-06-12] VITALS: Ht 160 cm; Wt 90.9 kg
[~2019-06-12 15:09] MED LIST changes: +HYDROCODON-ACE1 EA10 PO; +MOTRIN600 MG PO; +PROTONIX40 MG
[2019-06-12 15:14] VITALS: BP 127/89; Ht 160 cm; Wt 90.9 kg
== END 2019-06-12 16:42 | disposition home or self-care (01) ==
LOC: D.ER 15:09
DX: H43.392 Other vitreous opacities, left eye (principal); Y04.2XXA Assault by strike against or bumped into by another person, initial encounter; Y93.9 Activity, unspecified; Y92.9 Unspecified place or not applicable

== ENCOUNTER 2020-01-25 14:12 | Emergency (ER) | payer MEDICAID ==
[2020-01-25 14:51] VITALS: BP 117/82; Ht 160 cm
== END 2020-01-25 17:01 | disposition home or self-care (01) ==
LOC: D.ER 14:12
DX: Z20.828 Contact with and (suspected) exposure to other viral communicable diseases (principal); B34.9 Viral infection, unspecified

== ENCOUNTER 2020-03-07 01:38 | Emergency (ER) | payer MEDICAID ==
[~2020-03-07] VITALS: Ht 160 cm; Wt 86.2 kg
[2020-03-07 01:41] VITALS: Ht 160 cm; Wt 86.2 kg
[2020-03-07] MEDS ORDERED: HYDROCODON-ACE1 EAC7 PO (02:21)
[2020-03-07 05:26] VITALS: BP 124/77
== END 2020-03-07 05:26 | disposition home or self-care (01) ==
LOC: D.ER 01:38
DX: T74.11XA Adult physical abuse, confirmed, initial encounter (principal); S00.01XA Abrasion of scalp, initial encounter; Y29.XXXA Contact with blunt object, undetermined intent, initial encounter; T14.8XXA Other injury of unspecified body region, initial encounter